=== PATIENT | female | born 1970 | race American Indian/Alaskan Native ===

== ENCOUNTER → 2016-11-11 | Outpatient (CLI) | payer OTHER ==
[~2016-11-11] MED LIST: ALPRazolam 1MG TABLET ONE; GADOXETATE DISODIUM 2.5 MMOL/10 ML ONE; LORA2TAB99 PO; LOSA25TA5 PO
== END | disposition home or self-care (01) ==
LOC: RAD 09:14
PROVIDERS: ATTEND Internal Medicine Gastroenterology
DX: R16.0 Hepatomegaly, not elsewhere classified (principal); R94.5 Abnormal results of liver function studies; K57.30 Diverticulosis of large intestine without perforation or abscess without bleeding; E11.65 Type 2 diabetes mellitus with hyperglycemia; F41.9 Anxiety disorder, unspecified; E55.9 Vitamin D deficiency, unspecified; I10 Essential (primary) hypertension; H35.039 Hypertensive retinopathy, unspecified eye; N83.202 Unspecified ovarian cyst, left side; E78.00 Pure hypercholesterolemia, unspecified; N20.0 Calculus of kidney; F34.1 Dysthymic disorder; J45.909 Unspecified asthma, uncomplicated; F15.10 Other stimulant abuse, uncomplicated; Z68.37 Body mass index [BMI] 37.0-37.9, adult; Z91.14 Patient's other noncompliance with medication regimen; Z90.49 Acquired absence of other specified parts of digestive tract
CPT/HCPCS: 74183; A9581

== ENCOUNTER 2017-11-05 19:05 | Emergency (ER) | payer MEDICAID, OTHER ==
[~2017-11-05] VITALS: Ht 170.2 cm; Wt 96.7 kg
[~2017-11-05 19:05] MED LIST changes: -ALPRazolam 1MG TABLET ONE; -GADOXETATE DISODIUM 2.5 MMOL/10 ML ONE
[2017-11-05 19:11] VITALS: BP 154/101
== END 2017-11-05 20:07 | disposition home or self-care (01) ==
LOC: ED 20:01
DX: H66.91 Otitis media, unspecified, right ear (principal); J30.9 Allergic rhinitis, unspecified; F41.1 Generalized anxiety disorder; E11.9 Type 2 diabetes mellitus without complications; I10 Essential (primary) hypertension; E66.9 Obesity, unspecified; Z90.49 Acquired absence of other specified parts of digestive tract; Z88.8 Allergy status to other drugs, medicaments and biological substances; Z88.6 Allergy status to analgesic agent
CPT/HCPCS: 82962; 99283

== ENCOUNTER 2018-10-17 07:51 | Emergency (ER) | payer MEDICAID, OTHER ==
[~2018-10-17] VITALS: Ht 170.2 cm; Wt 94.6 kg
[~2018-10-17 07:51] MED LIST changes: +LOSA25TA25 PO; -LOSA25TA5 PO
--- NOTE | 2018-10-17 08:20 | NUR ---
Pt to ER for several days of productive cough, intermittent KAMINSKI & gen. malaise. Lungs CTA, 99% RA. Cardiac, NIBP & SPO2 monitors placed.
[2018-10-17 08:26] LABS: BASOPHILS # (AUTO) 0.06 x10^3/uL (0-0.1); BASOPHILS % (AUTO) 1 % (0-1); EOSINOPHILS # (AUTO) 0.16 x10^3/uL (0-0.4); EOSINOPHILS % (AUTO) 3 % (1-7); LYMPHOCYTES # (AUTO) 2.44 x10^3/uL (1-3.4); LYMPHOCYTES % (AUTO) 41 % (22-44); MD NO; MEAN CORPUSCULAR HEMOGLOBIN 29.5 pg (27.0-34.8); MEAN CORPUSCULAR HGB CONC 33.4 g/dL (32.4-35.8); MEAN CORPUSCULAR VOLUME 88.2 fL (80-100); MEAN PLATELET VOLUME 7.5 fL (7.4-10.4); MONOCYTES # (AUTO) 0.42 x10^3/uL (0.2-0.8); MONOCYTES % (AUTO) 7 % (2-9); NEUTROPHILS # (AUTO) 2.92 x10^3/uL (1.8-6.8); NEUTROPHILS % (AUTO) 49 % (42-75); PLATELET COUNT 313 x10^3/uL (130-400); RED BLOOD COUNT 4.65 x10^6/uL (3.82-5.3); RED CELL DISTRIBUTION WIDTH 14.1 % (9.6-15.2)
[2018-10-17] MEDS ORDERED: SIMV5TAB14 PO (08:34)
[2018-10-17 08:38] LABS: ALANINE AMINOTRANSFERASE 21 U/L (12-78); ALBUMIN 3.2 g/dL (3.4-5.0); ANION GAP 5 mmol/L (5-15); CALCIUM 8.1 mg/dL (8.5-10.1); CHLORIDE 105 mmol/L (98-107); CREATININE 0.72 mg/dL (0.55-1.02)
[2018-10-17 08:43] LABS: ALKALINE PHOSPHATASE 63 U/L (45-117); BILIRUBIN,TOTAL 0.4 mg/dL (0.2-1.0); TOTAL PROTEIN 6.6 g/dL (6.4-8.2); TROPONIN I < 0.015 ng/mL (0.000-0.045)
[2018-10-17 09:04] VITALS: BP 152/85
--- NOTE | 2018-10-17 09:04 | NUR ---
Patient is resting comfortably in bed. Vital Signs within normal limits. CXR results pending.
--- NOTE | 2018-10-17 09:20 | NUR ---
Patient given discharge instructions and they have confirmed that they understand the instructions. Patient ambulatory with steady gait.
== END 2018-10-17 09:22 | disposition home or self-care (01) ==
LOC: ED 09:04
DX: J20.8 Acute bronchitis due to other specified organisms (principal); R07.89 Other chest pain; R06.00 Dyspnea, unspecified; I10 Essential (primary) hypertension; E11.9 Type 2 diabetes mellitus without complications; E66.9 Obesity, unspecified
CPT/HCPCS: 36415; 71046; 80053; 84484; 85025; 93005; 99284

== ENCOUNTER 2019-03-21 19:24 | Emergency (ER) | payer OTHER ==
[~2019-03-21] VITALS: Ht 170.2 cm; Wt 98.9 kg
[~2019-03-21 19:24] MED LIST changes: +SIMV5TAB14 PO
[2019-03-21 19:26] VITALS: BP 184/98
[2019-03-21] MEDS ORDERED: ATORVASTATIN (19:38)
[2019-03-21] MEDS ORDERED: ASPI-496 PO (19:38)
[2019-03-21] MEDS ORDERED: AMLODIPINE (19:38)
== END 2019-03-21 20:56 | disposition home or self-care (01) ==
LOC: ED 20:40
DX: M67.431 Ganglion, right wrist (principal); F17.200 Nicotine dependence, unspecified, uncomplicated; E11.9 Type 2 diabetes mellitus without complications; I10 Essential (primary) hypertension; Z72.89 Other problems related to lifestyle
CPT/HCPCS: 99283

== ENCOUNTER 2019-12-31 19:32 | Emergency (ER) | payer OTHER ==
[~2019-12-31] VITALS: Ht 170.2 cm; Wt 95.0 kg
[~2019-12-31 19:32] MED LIST changes: +AMLODIPINE; +ASPI-496 PO; +ATORVASTATIN
[2019-12-31 20:57] VITALS: BP 145/86
--- NOTE | 2019-12-31 20:59 | NUR ---
49Y F HERE FOR GLF, REP EVEN UNLABORED PT TEARFUL WHEN TALKING ABOUT EVENT. PT CONNECTED TO MONITORING VSS NADN
--- NOTE | 2019-12-31 21:25 | NUR ---
KNEE IMMOBILIZER PLACED ON PATIENT. PATIENT IS NOT TOLERATING WELL. PATIENT WAS GIVING STAFF INSTRUCTIONS ON HOW TO PLACE A KNEE IMMOBILIZER. STAFF RE-EDUCATED PATIENT ON PROPER KNEE IMMOBILIZER PLACEMENT. NO EVIDENCE OF LEARNING EXHIBITED. PATIENT STATED THAT SHE DID NOT LIKE THE KNEE IMMOBILIZER, THIS MAY PREVENT COMPLIANCE AT HOME.
--- NOTE | 2019-12-31 21:40 | NUR ---
PT EDUCATED ON WALKER USE
== END 2019-12-31 22:08 | disposition home or self-care (01) ==
LOC: ED 21:30
DX: S20.211A Contusion of right front wall of thorax, initial encounter (principal); S60.211A Contusion of right wrist, initial encounter; S80.01XA Contusion of right knee, initial encounter; S90.01XA Contusion of right ankle, initial encounter; M25.461 Effusion, right knee; I10 Essential (primary) hypertension; E66.9 Obesity, unspecified; Z68.32 Body mass index [BMI] 32.0-32.9, adult; W01.0XXA Fall on same level from slipping, tripping and stumbling without subsequent striking against object, initial encounter; Y93.89 Activity, other specified; Y92.89 Other specified places as the place of occurrence of the external cause; Y99.8 Other external cause status
CPT/HCPCS: 29505; 99284

== ENCOUNTER 2020-12-07 05:52 | Emergency (ER) | payer OTHER ==
[~2020-12-07] VITALS: Ht 170.2 cm; Wt 87.0 kg
[2020-12-07] MEDS ORDERED: MORPHINE SULFATE 4 MG/ML, 1ML IVPush PRN (06:30)
[2020-12-07] MEDS ORDERED: DIPHENHYDRAMINE 50 MG/ML, 1ML IVPush ONE (06:30)
[2020-12-07] MEDS ORDERED: SODIUM CHLORIDE FLUSH 10ML SYR IVF ONE (06:30)
[2020-12-07] MEDS ORDERED: METOCLOPRAMIDE 5 MG/ML, 2ML IVPush ONE (06:30)
[2020-12-07] MEDS ORDERED: SODIUM CHLORIDE 0.9% 1,000ML IVBOLUS ONE (06:30)
--- NOTE | 2020-12-07 06:53 | NUR ---
BEDSIDE REPORT FROM KEVIN LAST FOR TRANSFER OF PATIENT CARE.
[2020-12-07 07:19] LABS: BASOPHILS % (AUTO) 1 % (0-1); EOSINOPHILS % (AUTO) 1 % (1-7); LYMPHOCYTES % (AUTO) 41 % (22-44); MEAN CORPUSCULAR HEMOGLOBIN 27.6 pg (27.0-34.8); MEAN CORPUSCULAR HGB CONC 33.7 g/dL (32.4-35.8); MEAN PLATELET VOLUME 7.6 fL (7.4-10.4); MONOCYTES % (AUTO) 7 % (2-9); NEUTROPHILS % (AUTO) 50 % (42-75); PLATELET COUNT 319 x10^3/uL (130-400); RED BLOOD COUNT 4.87 x10^6/uL (3.82-5.3); RED CELL DISTRIBUTION WIDTH 16.5 % (9.6-15.2)
--- NOTE | 2020-12-07 07:21 | NUR ---
20 GUAGE IV STARTED RIGHT AC, BLOOD COLLECTED, LABELLED AND SENT TO LAB, PATIENT AMBULATED TO BATHROOM WITH STEADY GAIT FOR URINE SAMPLE. UA COLLECTED AND SENT TO LAB. PATIENT CONNECTED TO MONITOR, VSS, CALL LIGHT WITHIN REACH.
[2020-12-07 07:25] LABS: ALANINE AMINOTRANSFERASE 23 U/L (12-78); ALBUMIN 3.4 g/dL (3.4-5.0); ANION GAP 7 mmol/L (5-15); CALCIUM 8.7 mg/dL (8.5-10.1); CHLORIDE 104 mmol/L (98-107); CREATININE 0.88 mg/dL (0.55-1.02)
[2020-12-07] MEDS ORDERED: DIPHENHYDRAMINE 50 MG/ML, 1ML ONE (07:25)
[2020-12-07] MEDS ORDERED: METOCLOPRAMIDE 5 MG/ML, 2ML ONE (07:25)
[2020-12-07 07:30] LABS: ALKALINE PHOSPHATASE 55 U/L (45-117); BILIRUBIN,TOTAL 0.8 mg/dL (0.2-1.0); TOTAL PROTEIN 7.1 g/dL (6.4-8.2); TROPONIN I < 0.015 ng/mL (0.000-0.045)
[2020-12-07 07:37] LABS: MICROSCOPIC AUTO
--- NOTE | 2020-12-07 07:43 | NUR ---
PATIENT TO IMAGING.
--- NOTE | 2020-12-07 08:20 | NUR ---
LATE ENTRY DUE TO PATIENT CARE: PATIENT RESTING IN [place] WITH EYES CLOSED, RESP EVEN AND UNLABORED, CONNECTED TO MONITOR, VSS, CALL LIGHT WITHIN REACH. PATIENT UP FOR RECHECK.
[2020-12-07 08:46] VITALS: BP 147/88
--- NOTE | 2020-12-07 09:49 | NUR ---
IV removed with tip intact. Patient given discharge instructions and prescription and they have confirmed that they understand the instructions. Patient ambulatory with steady gait. NAD, all questions answered appropriately, denies additional needs at this time. No personal belongings left in room after discharge.
== END 2020-12-07 09:50 | disposition home or self-care (01) ==
LOC: ED 06:05
DX: R10.84 Generalized abdominal pain (principal); R10.33 Periumbilical pain; R07.9 Chest pain, unspecified; E11.9 Type 2 diabetes mellitus without complications; I10 Essential (primary) hypertension; Z90.49 Acquired absence of other specified parts of digestive tract; F17.200 Nicotine dependence, unspecified, uncomplicated
CPT/HCPCS: 36415; 74176; 80053; 81001; 83690; 84484; 85025; 96361; 96374; 96375; 99284; J1200; J2765; J7030